=== PATIENT | male | born 1955 | race Caucasian/White ===

== ENCOUNTER 2017-04-27 16:49 | Emergency (ER) | payer OTHER ==
[~2017-04-27] VITALS: Ht 170.2 cm; Wt 101.8 kg
[2017-04-27 17:07] VITALS: Ht 170.2 cm; Wt 101.8 kg
[2017-04-27 19:00] VITALS: BP 147/89
== END 2017-04-27 19:16 | disposition home or self-care (01) ==
LOC: ED 16:49
DX: J06.9 Acute upper respiratory infection, unspecified (principal); I10 Essential (primary) hypertension
CPT/HCPCS: J1885

== ENCOUNTER 2017-05-05 10:22 | Emergency (ER) | payer OTHER ==
[~2017-05-05] VITALS: Ht 162.6 cm; Wt 102.5 kg
[2017-05-05 10:26] VITALS: Ht 162.6 cm; Wt 102.5 kg
[2017-05-05 11:45] VITALS: BP 153/69
== END 2017-05-05 11:45 | disposition home or self-care (01) ==
LOC: ED 10:22
DX: R51 Headache (principal); R42 Dizziness and giddiness; I10 Essential (primary) hypertension; E78.00 Pure hypercholesterolemia, unspecified